=== PATIENT | female | born 1965 | race Two or more races ===

== ENCOUNTER 2024-03-02 09:54 | Outpatient (AMB) | payer BC, SELFPAY ==
--- NOTE | 2024-03-02 10:29 | PD.ORTHCLVIS ---
Vital signs 03/02/24 10:31 Height 1.68 m Height Method Stated Weight 71.327 kg Weight Measurement Method Standing Scale BMI 25.2 BP 107/71 Blood Pressure Source Automatic Cuff Blood Pressure Location Right Upper Arm Position Sitting Respiration 18 Pulse 71 Pulse Source Monitor Temp 97.6 F Temp Source Temporal Artery Scan Pulse Oximetry (%) 97 Oxygen Delivery Method Room Air Med/Allergies Allergies & Medications Allergies No Known Allergies Allergy (Verified 03/02/24 10:32) Medication Reconciliation paroxetine HCl 20 mg tablet 20 mg PO HS 12/18/20 [History Confirmed 03/02/24] nklnie-osnczhby-fbpaops 36,000-114,000-180,000 unit capsule,delay rel (Creon) 1 cap PO QDAY 11/20/21 [History Confirmed 03/02/24] potassium chloride 20 mEq tablet,extended release(part/cryst) 1 tab PO QDAY 11/20/21 [History Confirmed 03/02/24] lactulose 20 gram/30 mL oral solution 5 g (7.5 mL) PO BID #300 mL 12/05/21 [Rx Confirmed 03/02/24] lansoprazole 30 mg delayed release,disintegrating tablet (Prevacid SoluTab) 30 mg PO QDAY #30 tabs 12/05/21 [Rx Confirmed 03/02/24] lorazepam 0.5 mg tablet 0.5 mg PO HS PRN Anxiety #30 tabs 12/05/21 [Rx Confirmed 03/02/24] prednisone 20 mg tablet 40 mg (2 x 20 mg) PO QDAY #30 tabs 12/05/21 [Rx Confirmed 03/02/24] spironolactone 25 mg tablet 25 mg PO DAILY #30 tabs 12/05/21 [Rx Confirmed 03/02/24] thiamine mononitrate (vit B1) 100 mg tablet (Vitamin B-1 (mononitrate)) 100 mg PO BID #30 tabs 12/05/21 [Rx Confirmed 03/02/24] hydrocodone 5 mg-acetaminophen 325 mg tablet 1 tab PO BID PRN pain #10 tabs 02/10/23 [Rx Confirmed 03/02/24] ibuprofen 600 mg tablet 600 mg PO Q6H #30 tabs 02/10/23 [Rx Confirmed 03/02/24] hydrocodone 5 mg-acetaminophen 325 mg tablet 1 tab PO Q6H PRN pain #7 tabs 02/26/23 [Rx Confirmed 03/02/24] ibuprofen 600 mg tablet 600 mg PO TID PRN pain #30 tabs 02/26/23 [Rx Confirmed 03/02/24] meloxicam 7.5 mg tablet 7.5 mg PO QDAY #45 tabs 11/04/23 [Rx Confirmed 03/02/24] celecoxib 200 mg capsule (Celebrex) 200 mg PO BID #60 caps 11/25/23 [Rx Confirmed 03/02/24] Subjective Visit Visit for: follow up visit and x-rays Immunization / Flu Flu Vaccine in the Last 12 Months: No Flu Vaccine Exclusion Criteria: No Exclusion Criteria History of Present Illness Chief complaint: F/U KNEE XRAYS Kelly is a pleasant 57-year-old female with left knee pain. This been ongoing a while. She had a prior ACL and meniscus surgery over [address] Torres. The left knee pain is affecting quality life and happiness. She has had injections previously as well as physical therapy. It has been quite a while since the last injection. She has done very well with the last injection. She Reports it is still working and wants to hold off Pain Pain level (0-10): 8 Pain duration: ALL DAY Pain location: inside (medial), outside (lateral), anterior and posterior Pain quality: sharp Pain timing: increases with activity Associated signs & symptoms: numbness, weakness and stiffness Ambulatory data Ambulatory device: none Treatments Number of previous injections: 1 (6 YEARS AGO NO HELP OR RELIEF ) Improvement with previous injections: No Improvement with PT: No Improvement with NSAIDS: no Review of Systems Review of Systems: All systems negative unless otherwise noted in HPI. Exam Exam Patient is in no acute distress and is cooperative with the examination today. Breathing is nonlabored. In no respiratory distress. Bilateral extremities were evaluated and demonstrates sensation intact to light touch. Palpable pedal pulses are present. No significant edema is present. Bilateral hips were examined. The patient has no pain with log roll of the hips. Internal rotation to 30 degrees and external rotation to 30 degrees is painless. Negative FADIR. The left knee was examined. The left knee is in [varus] alignment. Range of motion from [0-115] degrees. Knee is stable to varus and valgus as well as AP translation with <5mm. Patient has a [negative] McMurrays. There is [no] pain with patellofemoral compression and [no] crepitus noted. The knee is [tender] to palpation [medially]. The right knee was also examined. The right knee is in [varus] alignment. Range of motion from [0-120] degrees. Knee is stable to varus and valgus as well as AP translation with <5mm. Patient has a [negative] McMurrays. There is [no] pain with patellofemoral compression and [no] crepitus noted. The knee is [tender] to palpation [medially]. Assessment and Plan Problem List (1) Degenerative arthritis of knee, bilateral: Status: Acute Plan: Patient is a 57-year-old female with bilateral knee arthritis worse on the left. X-rays demonstrate moderate arthritis of the left knee with prior hardware. Patient is doing well. She wants to wait to see how long the last injection works Office Procedures GNS Level of Care Nursing/Assessment Patient Status: Established Patient Nursing Assessment/Reassesment: Medication Reconciliation, Update PMH in EMR and Vital Signs Coordination of Care: Complex Care and Chronic Disease 1-5, Education Complex Pt/Fam, Consent,records obtained, informed consent, Results/Orders obtained and Staff clarify orders Special Needs: Language special needs Established Patient Charge Established Patient Point Assignment: 95 Established Patient Point Charge: EP Level 3 (80-115) Past Medical History Past Medical History Have you ever been diagnosed with any of the following: Neurological Problems Seizures: No Cardiology Problems Congestive Heart Failure: No Respiratory Problems Chronic Obstructive Pulmonary Disease (COPD): No Asthma: No Smoking: Yes (30 YEARS) Smoking Exposure: Yes Stomache/Intestinal Problems Cirrhosis: No Celiac Disease: No Gall Bladder Disease: Yes Daly's Esophagus: No Colitis: No Irritable Bowel: No Hiatal Hernia: Yes Gastroesophageal Reflux Disease: No Genital/Urinary Problems Renal Disease: No Endocrine Problems Diabetes Mellitus Type 1: No Diabetes Mellitus Type 2: No Hyperthyroidism: Yes Blood Problems Sickle Cell Disease: No Psychologic Problems Depression: Yes Anxiety: Yes Other Problems Falls: Yes Blood Transfusions: Yes Blood Transfusion Reaction: No Anesthesia Reactions: No Measles: Yes Mumps: Yes Cancer: No
[2024-03-02 10:31] VITALS: BP 107/71; PULSE 71; RESP 18; TEMP 36.4; O2SAT 97; BMI 25.2
== END 2024-03-02 10:33 | disposition home or self-care (01) ==
LOC: HODSRG 09:54
PROVIDERS: PCP Internal Medicine; Referring Provider Internal Medicine; Supervising Provider Orthopaedic Surgery Adult Reconstructive Orthopaedic Surgery; Visit Provider Orthopaedic Surgery Adult Reconstructive Orthopaedic Surgery
DX: M17.0 Bilateral primary osteoarthritis of knee (principal)
CPT/HCPCS: 99213; G0463

== ENCOUNTER → 2024-03-11 | Outpatient (CLI) | payer BC, SELFPAY ==
[2024-03-11 10:46] LABS: Basophils % (Auto) 0 % (0-2.5); Eosinophils # (Auto) 0.1 Thou/mm3 (0.0-0.5); Eosinophils % (Auto) 2 % (0-10); Hematocrit 39.5 % (36.0-46.0); Hemoglobin 13.9 g/dL (12.0-16.0); Immature Granulocytes % (Auto) 0 % (0-0); Immature Granulocytes Auto 0.02 Thou/mm3 (0.00-0.00); Lymphocytes # (Auto) 1.2 Thou/mm3 (1.0-4.8); Lymphocytes % (Auto) 22 % (10-50); Mean Corpuscular HGB Conc 35.2 g/dl (31.0-37.0); Mean Corpuscular Hemoglobin 31.6 pg (25.0-35.0); Mean Corpuscular Volume 90 fL (80-100); Monocytes # (Auto) 0.3 Thou/mm3 (0.0-0.8); Monocytes % (Auto) 5 % (0-12); Neutrophils # (Auto) 3.9 Thou/mm3 (1.8-7.7); Neutrophils % (Auto) 70 % (37-80); Nucleated Red Blood Cell % 0 /100 WBC (0); Platelet Count 200 Thou/mm3 (140-440); RDW Standard Deviation 39.6 fL (36.4-46.3); White Blood Count 5.6 Thou/mm3 (3.6-11.0)
[2024-03-11 10:58] LABS: Glucose Estimated Average 82 mg/dL (80-131); Hemoglobin A1C 4.5 % Hgb (4.8-6.0)
[2024-03-11 11:07] LABS: Alanine Aminotransferase 26 U/L (10-49); Albumin/Globulin Ratio 2.3 (1.2-2.2); Alkaline Phosphatase 109 U/L (46-116); Anion Gap 6 (7-16); Aspartate Amino Transferase 29 U/L (0-34); BUN/Creatinine Ratio 15 Ratio (12-20); Bilirubin,Total 0.6 mg/dL (0.3-1.2); Blood Urea Nitrogen 17 mg/dL (9-23); Carbon Dioxide 26.7 mMol/L (20.0-31.0); Cardiac Risk Estimate 2.7 RATIO (3.7-5.6); Chloride 107 mMol/L (98-107); Cholesterol 233 mg/dL (132-200); Creatinine (Component) 1.1 mg/dL (0.6-1.3); Globulin 2.2 gm/dL (2.3-3.5); Glucose 100 mg/dL (74-106); HDL Cholesterol 87 mg/dL (40-60); LDL Cholesterol,Calculated 126 mg/dL (0-130); Osmolality,Calculated 280 (275-295); Potassium 4.9 mMol/L (3.4-5.1); Sodium 140 mMol/L (136-145); Thyroid Stimulating Hormone 1.34 uIU/mL (0.55-4.78); Total Protein 7.2 gm/dL (5.7-8.2); Triglycerides 101 mg/dL (30-150); Uric Acid 6.7 mg/dL (3.1-7.8); eGFR 59 See Note
[2024-03-11 11:08] LABS: Vitamin B12 568 pg/mL (211-911); Vitamin D 25 Hydroxy Total 10.2 ng/mL (7.3-40.2)
== END | disposition home or self-care (01) ==
LOC: COPL 09:15
PROVIDERS: PCP Internal Medicine; Referring Provider Internal Medicine; Visit Provider Internal Medicine
DX: Z00.00 Encounter for general adult medical examination without abnormal findings (principal)
CPT/HCPCS: 36415; 80053; 80061; 81001; 82306; 82607; 83036; 84443; 84550; 85025

== ENCOUNTER 2024-03-12 11:03 | Outpatient (AMB) | payer BC, SELFPAY ==
[2024-03-12 11:20] VITALS: BP 150/76; PULSE 65; RESP 18; TEMP 36.6; O2SAT 97; BMI 25.2
--- NOTE | 2024-03-12 11:20 | ORTHONT_ITS ---
Vital signs 03/12/24 11:20 Height 1.68 m Height Method Stated Weight 71.214 kg Weight Measurement Method Standing Scale BMI 25.2 BP 150/76 H Blood Pressure Source Automatic Cuff Blood Pressure Location Right Upper Arm Position Sitting Respiration 18 Pulse 65 Pulse Source Monitor Temp 97.8 F Temp Source Oral Pulse Oximetry (%) 97 Oxygen Delivery Method Room Air Med/Allergies Allergies & Medications Allergies No Known Allergies Allergy (Verified 03/02/24 10:32) Subjective Visit Visit for: follow up visit and x-rays Immunization / Flu Flu Vaccine in the Last 12 Months: Yes Date of most recent flu vaccination: 05/08/23 Flu Vaccine Exclusion Criteria: No Exclusion Criteria History of Present Illness Chief complaint: RIGHT KNEE PAIN, REQUESTING INJETION Kelly is a pleasant 57-year-old female with left knee pain. This been ongoing a while. She had a prior ACL and meniscus surgery over [address] Torres. The left knee pain is affecting quality life and happiness. She has had injections previously as well as physical therapy. It has been quite a while since the last injection. She has done very well with the last injection. For the right knee, she reports an increase in pain. We had x-rays that demonstrate moderate arthritis. She has tried anti-inflammatories Personal History Occupation: RETIRED Red flag PMH: smoker Pain Pain level (0-10): 8 Pain duration: CONSTANT Pain location: inside (medial), outside (lateral) and anterior Pain quality: sharp, tingling and other (specify) (STABBING) Pain timing: increases with activity Associated signs & symptoms: numbness and stiffness Ambulatory data Ambulatory device: none Treatments Number of previous injections: 1 (6 YEARS AGO NO HELP OR RELIEF ) Improvement with previous injections: No Improvement with PT: No Improvement with NSAIDS: no Review of Systems Review of Systems: All systems negative unless otherwise noted in HPI. Exam Exam Patient is in no acute distress and is cooperative with the examination today. Breathing is nonlabored. In no respiratory distress. Bilateral extremities were evaluated and demonstrates sensation intact to light touch. Palpable pedal pulses are present. No significant edema is present. Bilateral hips were examined. The patient has no pain with log roll of the hips. Internal rotation to 30 degrees and external rotation to 30 degrees is painless. Negative FADIR. The left knee was examined. The left knee is in [varus] alignment. Range of motion from [0-115] degrees. Knee is stable to varus and valgus as well as AP translation with <5mm. Patient has a [negative] McMurrays. There is [no] pain with patellofemoral compression and [no] crepitus noted. The knee is [tender] to palpation [medially]. The right knee was also examined. The right knee is in [varus] alignment. Range of motion from [0-120] degrees. Knee is stable to varus and valgus as well as AP translation with <5mm. Patient has a [negative] McMurrays. There is [no] pain with patellofemoral compression and [no] crepitus noted. The knee is [tender] to palpation [medially]. Prior x-rays demonstrate moderate arthritis of the right knee with joint space narrowing medially and laterally Assessment and Plan Problem List (1) Degenerative arthritis of knee, bilateral: Status: Acute Plan: Patient is a 57-year-old female with bilateral knee arthritis worse on the left. We discussed injections on the right knee. We also recommended anti-in flammatories. Recommend knee cortisone injection as patient would like to proceed with conservative treatment at this time. The risks and benefits of the procedure were reviewed with the patient and patient gave verbal consent to continue with the procedure. Procedure: performed by Dr. Abernathy Using sterile technique the Right knee was thoroughly prepped with alcohol, and approximately 1 cc of Kenalog 40 mg/mL and 4 cc of 1% lidocaine was injected without resistance into the medial tibial femoral joint space. The patient tolerated the procedure. Office Procedures GNS Level of Care Nursing/Assessment Patient Status: Established Patient Nursing Assessment/Reassesment: Medication Reconciliation, Update PMH in EMR and Vital Signs Coordination of Care: Complex Care and Chronic Disease 1-5, Education Complex Pt/Fam, Consent,records obtained, informed consent, Results/Orders obtained and Staff clarify orders Established Patient Charge Established Patient Point Assignment: 95 Established Patient Point Charge: EP Level 1 (1-35) Surgical Proc/IM SQ injection Major Surgical Procedure: Yes (KNEE INJECTION ) Medication Given Medication Given Medication Given: Yes Documented Dose Given: 4 Medication Given Medication Given Medication Given: Yes Documented Dose Given: 1 Route: Infiitration Office Meds Xylocaine 10 mg/mL (1 %) injection solution Performing Provider: Praneeth Abernathy MD Performing Location: [facility] Administered by: Praneeth Abernathy MD on 03/12/24 11:48 Dose Route Admin Location Dispensed Lot Number Expiration Date [facility] Machine Leather Trimmer 20 mL Infiltration 20 mL [id number] [employer] triamcinolone acetonide 40 mg/mL suspension for injection Performing Provider: Praneeth Abernathy MD Performing Location: [facility] Administered by: Praneeth Abernathy MD on 03/12/24 11:48 Dose Route Admin Location Dispensed Lot Number Expiration Date [facility] Machine Leather Trimmer 40 mg intra-articular 1 mL [id number] [employer] Past Medical History Past Medical History Have you ever been diagnosed with any of the following: Neurological Problems Seizures: No Cardiology Problems Congestive Heart Failure: No Respiratory Problems Chronic Obstructive Pulmonary Disease (COPD): No Asthma: No Smoking: Yes (30 YEARS) Smoking Exposure: Yes Stomache/Intestinal Problems Cirrhosis: No Celiac Disease: No Gall Bladder Disease: Yes Daly's Esophagus: No Colitis: No Irritable Bowel: No Hiatal Hernia: Yes Gastroesophageal Reflux Disease: No Genital/Urinary Problems Renal Disease: No Endocrine Problems Diabetes Mellitus Type 1: No Diabetes Mellitus Type 2: No Hyperthyroidism: Yes Blood Problems Sickle Cell Disease: No Psychologic Problems Depression: Yes Anxiety: Yes Other Problems Falls: Yes Blood Transfusions: Yes Blood Transfusion Reaction: No Anesthesia Reactions: No Measles: Yes Mumps: Yes Cancer: No
== END 2024-03-12 11:39 | disposition home or self-care (01) ==
LOC: HODSRG 11:03
PROVIDERS: PCP Internal Medicine; Referring Provider Internal Medicine; Supervising Provider Orthopaedic Surgery Adult Reconstructive Orthopaedic Surgery; Visit Provider Orthopaedic Surgery Adult Reconstructive Orthopaedic Surgery
DX: M17.0 Bilateral primary osteoarthritis of knee (principal)
CPT/HCPCS: 20610; 99211; J3301; J3490; G0463

== ENCOUNTER → 2024-03-12 | Outpatient (CLI) | payer BC, SELFPAY ==
[2024-03-12 09:58] LABS: Collection Type, Urine Clean Catch; Squamous Epithelial Cell,Urine 0 /hpf (0-5)
[2024-03-12 10:32] LABS: Bilirubin,Urine Negative (Negative); Blood,Urine Trace (Negative); Clarity,Urine Clear (Clear/Hazy); Color,Urine Lt-Yellow (Lt Yel-Yel); Glucose, Urine Negative (Negative); Ketones,Urine Negative (Negative); Leukocyte Esterase,Urine Negative (Negative); Nitrite,Urine Negative (Negative); Protein,Urine Negative (Neg - Trace); RBC,Urine 3 /hpf (0-3); Specific Gravity,Urine 1.014 (1.001-1.035); Urobilinogen,Urine Negative mg/dL (0.0-1.0); WBC,Urine 1 /hpf (0-5)
== END | disposition home or self-care (01) ==
LOC: SLDO 09:45
PROVIDERS: PCP Internal Medicine; Referring Provider Internal Medicine; Visit Provider Internal Medicine
DX: Z00.00 Encounter for general adult medical examination without abnormal findings (principal)
CPT/HCPCS: 81001

== ENCOUNTER 2024-09-23 14:09 | Outpatient (AMB) | payer BC, SELFPAY ==
[2024-09-23 14:29] VITALS: BP 135/77; PULSE 64; RESP 18; TEMP 36.8; O2SAT 96; BMI 24.3
--- NOTE | 2024-09-23 14:29 | PD.ORTHCLVIS ---
Vital signs 09/23/24 14:29 Height 1.68 m Height Method Stated Weight 68.521 kg Weight Measurement Method Standing Scale BMI 24.3 BP 135/77 H Blood Pressure Source Automatic Cuff Blood Pressure Location Right Upper Arm Position Sitting Respiration 18 Pulse 64 Pulse Source Monitor Temp 98.2 F Temp Source Temporal Artery Scan Pulse Oximetry (%) 96 Oxygen Delivery Method Room Air Med/Allergies Allergies & Medications Allergies No Known Allergies Allergy (Verified 09/23/24 14:31) Medication Reconciliation paroxetine HCl 20 mg tablet 20 mg PO HS 12/18/20 [History Confirmed 09/23/24] qxhgwo-ikbdfgij-hbcrrbz 36,000-114,000-180,000 unit capsule,delay rel (Creon) 1 cap PO QDAY 11/20/21 [History Confirmed 09/23/24] potassium chloride 20 mEq tablet,extended release(part/cryst) 1 tab PO QDAY 11/20/21 [History Confirmed 09/23/24] lactulose 20 gram/30 mL oral solution 5 g (7.5 mL) PO BID #300 mL 12/05/21 [Rx Confirmed 09/23/24] lansoprazole 30 mg delayed release,disintegrating tablet (Prevacid SoluTab) 30 mg PO QDAY #30 tabs 12/05/21 [Rx Confirmed 09/23/24] lorazepam 0.5 mg tablet 0.5 mg PO HS PRN Anxiety #30 tabs 12/05/21 [Rx Confirmed 09/23/24] prednisone 20 mg tablet 40 mg (2 x 20 mg) PO QDAY #30 tabs 12/05/21 [Rx Confirmed 09/23/24] spironolactone 25 mg tablet 25 mg PO DAILY #30 tabs 12/05/21 [Rx Confirmed 09/23/24] thiamine mononitrate (vit B1) 100 mg tablet (Vitamin B-1 (mononitrate)) 100 mg PO BID #30 tabs 12/05/21 [Rx Confirmed 09/23/24] ibuprofen 600 mg tablet 600 mg PO Q6H #30 tabs 02/10/23 [Rx Confirmed 09/23/24] ibuprofen 600 mg tablet 600 mg PO TID PRN pain #30 tabs 02/26/23 [Rx Confirmed 09/23/24] meloxicam 7.5 mg tablet 7.5 mg PO QDAY #45 tabs 11/04/23 [Rx Confirmed 09/23/24] celecoxib 200 mg capsule (Celebrex) 200 mg PO BID #60 caps 11/25/23 [Rx Confirmed 09/23/24] hydrocodone 5 mg-acetaminophen 325 mg tablet 1 tab PO BID PRN pain #10 tabs 03/12/24 [Rx Confirmed 09/23/24] hydrocodone 5 mg-acetaminophen 325 mg tablet 1 tab PO Q6H PRN pain #7 tabs 09/23/24 [Rx] Exam Exam Patient is in no acute distress and is cooperative with the examination today. Breathing is nonlabored. In no respiratory distress. Bilateral extremities were evaluated and demonstrates sensation intact to light touch. Palpable pedal pulses are present. No significant edema is present. Bilateral hips were examined. The patient has no pain with log roll of the hips. Internal rotation to 30 degrees and external rotation to 30 degrees is painless. Negative FADIR. The left knee was examined. The left knee is in [varus] alignment. Range of motion from [0-115] degrees. Knee is stable to varus and valgus as well as AP translation with <5mm. Patient has a [negative] McMurrays. There is [no] pain with patellofemoral compression and [no] crepitus noted. The knee is [tender] to palpation [medially]. The right knee was also examined. The right knee is in [varus] alignment. Range of motion from [0-120] degrees. Knee is stable to varus and valgus as well as AP translation with <5mm. Patient has a [negative] McMurrays. There is [no] pain with patellofemoral compression and [no] crepitus noted. The knee is [tender] to palpation [medially]. Prior x-rays demonstrate moderate arthritis of the right knee with joint space narrowing medially and laterally Assessment and Plan Problem List (1) Degenerative arthritis of knee, bilateral: Status: Acute Plan: Patient is a 57-year-old female with bilateral knee arthritis worse on the left. We discussed injections on the right knee. We also recommended anti-inflammatories. Recommend knee cortisone injections as patient would like to proceed with conservative treatment at this time. The risks and benefits of the procedure were reviewed with the patient and patient gave verbal consent to continue with the procedure. Procedure: performed by Dr. Abernathy Using sterile technique the Bilateral knees were thoroughly prepped with alcohol, and approximately 1 cc of Kenalog 40 mg/mL and 4 cc of 1% lidocaine was injected into each knee without resistance into the medial tibial femoral joint space. The patient tolerated the procedure. Office Procedures GNS Level of Care Nursing/Assessment Patient Status: Established Patient Nursing Assessment/Reassesment: Medication Reconciliation, Update PMH in EMR and Vital Signs Coordination of Care: Complex Care and Chronic Disease 1-5, Education Complex Pt/Fam, Consent,records obtained, informed consent, Results/Orders obtained and Staff clarify orders Established Patient Charge Established Patient Point Assignment: 95 Established Patient Point Charge: EP Level 3 (80-115) Surgical Proc/IM SQ injection Major Surgical Procedure: Yes (KNEE INJECTION) Medication Given Medication Given Medication Given: Yes Documented Dose Given: 8 Route: Infiitration Medication Given Medication Given Medication Given: Yes Documented Dose Given: 2 Route: Infiitration Office Meds Xylocaine 10 mg/mL (1 %) injection solution Performing Provider: Praneeth Abernathy MD Performing Location: [facility] Administered by: Praneeth Abernathy MD on 09/23/24 14:53 Dose Route Admin Location Dispensed Lot Number Expiration Date [facility] Autom[employer] Carp[employer] Molder 20 mL Infiltration 20 mL [id number] 08/05/27 52480-819-[address] [facility] triamcinolone acetonide 40 mg/mL suspension for injection Performing Provider: Praneeth Abernathy MD Performing Location: [facility] Administered by: Praneeth Abernathy MD on 09/23/24 14:53 Dose Route Admin Location Dispensed Lot Number Expiration Date [facility] [employer] Molder 40 mg intra-articular KNEE 1 mL [id number] 11/03/25 99083-415-74 ROZ REAL MA Intake Visit Data Collection New Patient or Established: Established Patient (seen at [facility] within 3 years) Reason for Visit:: BILATERAL KNEE INJECTION Seen by Clinical Staff ONLY (RN/MA): No Verbal consent obtained for Telemed visit?: No Farm Products Shipper Required: No PCP or OBGYN visit in last 3 months: Yes Hx Now: No Do You Feel Safe at Home: Yes Authorities Contacted: N/A Questionairres Past Medical History Past Medical History Have you ever been diagnosed with any of the following: Neurological Problems Seizures: No Cardiology Problems Congestive Heart Failure: No Respiratory Problems Chronic Obstructive Pulmonary Disease (COPD): No Asthma: No Smoking: Yes (30 YEARS) Smoking Exposure: Yes Stomache/Intestinal Problems Cirrhosis: No Celiac Disease: No Gall Bladder Disease: Yes Daly's Esophagus: No Colitis: No Irritable Bowel: No Hiatal Hernia: Yes Gastroesophageal Reflux Disease: No Genital/Urinary Problems Renal Disease: No Endocrine Problems Diabetes Mellitus Type 1: No Diabetes Mellitus Type 2: No Hyperthyroidism: Yes Blood Problems Sickle Cell Disease: No Psychologic Problems Depression: Yes Anxiety: Yes Other Problems Falls: Yes Blood Transfusions: Yes Blood Transfusion Reaction: No Anesthesia Reactions: No Measles: Yes Mumps: Yes Cancer: No Subjective Visit Visit for: follow up visit Immunization / Flu Flu Vaccine in the Last 12 Months: No Flu Vaccine Exclusion Criteria: No Exclusion Criteria History of Present Illness Chief complaint: BILATERAL KNEE INJECTIONS Patient is a 58-year-old female with bilateral knee pain. She is done well with prior cortisone injections in the past. She would like bilateral knee injections today Personal History Red flag PMH: BMI and other (specify) (FORMER ALCHOLIC ) BMI Counceling provided: Yes Pain Pain level (0-10): 6 Pain duration: ALL DAY Pain location: inside (medial), outside (lateral), anterior and posterior Pain quality: sharp, dull and aching Pain timing: increases with activity Ambulatory data Ambulatory device: none Treatments Improvement with previous injections: Yes Improvement with PT: No Improvement with NSAIDS: no Review of Systems Review of Systems: All systems negative unless otherwise noted in HPI.
== END 2024-09-23 14:48 | disposition home or self-care (01) ==
LOC: HODSRG 14:09
PROVIDERS: PCP Internal Medicine; Referring Provider Internal Medicine; Supervising Provider Orthopaedic Surgery Adult Reconstructive Orthopaedic Surgery; Visit Provider Orthopaedic Surgery Adult Reconstructive Orthopaedic Surgery
DX: M17.0 Bilateral primary osteoarthritis of knee (principal); M25.562 Pain in left knee; M25.561 Pain in right knee
CPT/HCPCS: 20610; 99213; J3301; J3490; G0463

== ENCOUNTER → 2024-11-02 | Outpatient (CLI) | payer BC, SELFPAY ==
[2024-11-02 11:40] LABS: Basophils # (Auto) 0.0 Thou/mm3 (0.0-0.2); Basophils % (Auto) 0 % (0-2.5); Eosinophils # (Auto) 0.0 Thou/mm3 (0.0-0.5); Eosinophils % (Auto) 0 % (0-10); Hematocrit 39.3 % (36.0-46.0); Hemoglobin 14.2 g/dL (12.0-16.0); Immature Granulocytes Auto 0.01 Thou/mm3 (0.00-0.00); Lymphocytes # (Auto) 1.2 Thou/mm3 (1.0-4.8); Lymphocytes % (Auto) 25 % (10-50); Mean Corpuscular HGB Conc 36.1 g/dl (31.0-37.0); Mean Corpuscular Hemoglobin 32.6 pg (25.0-35.0); Mean Corpuscular Volume 90 fL (80-100); Monocytes # (Auto) 0.3 Thou/mm3 (0.0-0.8); Monocytes % (Auto) 7 % (0-12); Neutrophils # (Auto) 3.2 Thou/mm3 (1.8-7.7); Neutrophils % (Auto) 68 % (37-80); Nucleated Red Blood Cell # 0.00 Thou/mm3 (0.00-0.00); Nucleated Red Blood Cell % 0 /100 WBC (0); Platelet Count 241 Thou/mm3 (140-440); RDW Standard Deviation 43.5 fL (36.4-46.3); Red Blood Count 4.36 Miln/mm3 (4.00-5.20); White Blood Count 4.7 Thou/mm3 (3.6-11.0)
[2024-11-02 11:57] LABS: Collection Type, Urine Clean Catch; Squamous Epithelial Cell,Urine 0 /hpf (0-5)
[2024-11-02 12:00] LABS: Alanine Aminotransferase 15 U/L (10-49); Albumin, Serum 4.6 gm/dL (3.5-5.0); Albumin/Globulin Ratio 2.0 (1.2-2.2); Alkaline Phosphatase 80 U/L (46-116); Anion Gap 7 (7-16); Aspartate Amino Transferase 22 U/L (0-34); BUN/Creatinine Ratio 9 Ratio (12-20); Bilirubin,Direct 0.2 mg/dL (0.0-0.3); Bilirubin,Total 0.7 mg/dL (0.3-1.2); Blood Urea Nitrogen 10 mg/dL (9-23); Calcium 9.6 mg/dL (8.3-10.6); Calcium (Corrected) 9.6 mg/dL (8.5-10.1); Carbon Dioxide 27.5 mMol/L (20.0-31.0); Cardiac Risk Estimate 3.1 RATIO (3.7-5.6); Chloride 106 mMol/L (98-107); Cholesterol 236 mg/dL (132-200); Creatinine (Component) 1.1 mg/dL (0.6-1.3); Globulin 2.3 gm/dL (2.3-3.5); Glucose 99 mg/dL (74-106); HDL Cholesterol 75 mg/dL (40-60); LDL Cholesterol,Calculated 145 mg/dL (0-130); Osmolality,Calculated 278 (275-295); Potassium 5.1 mMol/L (3.4-5.1); Sodium 140 mMol/L (136-145); Thyroid Stimulating Hormone 0.94 uIU/mL (0.55-4.78); Total Protein 6.9 gm/dL (5.7-8.2); Triglycerides 82 mg/dL (30-150); Uric Acid 5.5 mg/dL (3.1-7.8); Vitamin B12 409 pg/mL (211-911); Vitamin D 25 Hydroxy Total 18.3 ng/mL (7.3-40.2); eGFR 59 See Note
[2024-11-02 12:31] LABS: Bilirubin,Urine Negative (Negative); Blood,Urine Negative (Negative); Clarity,Urine Clear (Clear/Hazy); Color,Urine Lt-Yellow (Lt Yel-Yel); Glucose, Urine Negative (Negative); Ketones,Urine Negative (Negative); Leukocyte Esterase,Urine Negative (Negative); Nitrite,Urine Negative (Negative); PH,Urine 6.5 (5.0-7.0); Protein,Urine Negative (Neg - Trace); RBC,Urine 1 /hpf (0-3); Specific Gravity,Urine 1.012 (1.001-1.035); Urobilinogen,Urine Negative mg/dL (0.0-1.0); WBC,Urine 1 /hpf (0-5)
== END | disposition home or self-care (01) ==
LOC: COPL 10:47
PROVIDERS: PCP Internal Medicine; Referring Provider Internal Medicine; Visit Provider Internal Medicine
DX: Z00.00 Encounter for general adult medical examination without abnormal findings (principal)
CPT/HCPCS: 36415; 80053; 80061; 81001; 82248; 82306; 82607; 84443; 84550; 85025

== ENCOUNTER 2024-11-29 09:57 | Emergency (ER) | payer BC, SELFPAY ==
[2024-11-29 10:04] VITALS: BP 147/67; PULSE 70; RESP 24; O2SAT 99
--- NOTE | 2024-11-29 10:12 | EKG_ITS ---
[facility] Test Date: 2024-11-29 Pat Name: CLIFF FAJARDO Department: Room: - Gender: Female Systems Librarian: : 1965 Requested By: Sakina Golden Order Number: [id number] Reading MD: Sakina Golden Measurements Intervals [place] Rate: 58 P: 64 SD: 164 QRS: 63 QRSD: 90 T: 66 QT: 416 QTc: 412 Interpretive Statements SINUS BRADYCARDIA WITH SINUS ARRHYTHMIA NONSPECIFIC T-WAVE ABNORMALITY Compared to ECG 12/03/2022 12:33:29 T-wave abnormality now present Sinus rhythm no longer present Left ventricular hypertrophy no longer present ST (T wave) deviation no longer present /store/S0/[id number]/[id number].pdf
[2024-11-29 10:13] VITALS: BMI 22.6
[2024-11-29] MEDS: ONDANSETRON INJ 2 MG/ML INJ 2 ML 4 MG IVP (10:24)
[2024-11-29] MEDS: fentaNYL CIT INJ 50 mCg/ML AMP 2ML 25 MCG IVP (10:25)
[2024-11-29 10:37] LABS: Basophils # (Auto) 0.0 Thou/mm3 (0.0-0.2); Basophils % (Auto) 0 % (0-2.5); Eosinophils # (Auto) 0.0 Thou/mm3 (0.0-0.5); Eosinophils % (Auto) 0 % (0-10); Hematocrit 42.7 % (36.0-46.0); Hemoglobin 15.6 g/dL (12.0-16.0); Immature Granulocytes Auto 0.04 Thou/mm3 (0.00-0.00); Lymphocytes # (Auto) 2.9 Thou/mm3 (1.0-4.8); Lymphocytes % (Auto) 31 % (10-50); Mean Corpuscular HGB Conc 36.5 g/dl (31.0-37.0); Mean Corpuscular Hemoglobin 32.8 pg (25.0-35.0); Mean Corpuscular Volume 90 fL (80-100); Monocytes # (Auto) 0.6 Thou/mm3 (0.0-0.8); Monocytes % (Auto) 7 % (0-12); Neutrophils # (Auto) 5.6 Thou/mm3 (1.8-7.7); Neutrophils % (Auto) 61 % (37-80); Nucleated Red Blood Cell # 0.00 Thou/mm3 (0.00-0.00); Nucleated Red Blood Cell % 0 /100 WBC (0); Platelet Count 292 Thou/mm3 (140-440); RDW Standard Deviation 43.4 fL (36.4-46.3); Red Blood Count 4.75 Miln/mm3 (4.00-5.20); White Blood Count 9.2 Thou/mm3 (3.6-11.0)
--- NOTE | 2024-11-29 10:44 | PC.NURSE ---
PATIENT CAME IN TO ED FOR NAUSEA VOMITING AND DIARRHEA THAT STARTED YESTERDAY. PATIENT HAS HISTORY OF CIRRHOSIS, ANXIETY AND HIGH BLOOD PRESSURE. PATIENT IS ALERT AND ORIENTED X4. PATIENT CAME IN SCREAMING AT STAFF STATING SHE IS DYING. PATIENT YELLING AT STAFF TO PLEASE HELP HER. PATIENT WAS TAKEN TO ROOM 19. VITAL SIGNS ALL STABLE. PATIENT GIVEN IV ZOFRAN FOR NAUSEA AND FENTANLY FOR PAIN IC PER DR PEREZ. PATIENT CONTINUED TO SCREAM AT STAFF, PATIENT TRIED TO GET UP FROM BED ON HER OWN. PATIENT WAS TOLD TO STAY IN BED AND WAIT FOR WHEELCHAIR. PATIENT WAS ALSO OFFERED A BED CAMACHO. PATIENT WANTED TO LEAVE AMA.
--- NOTE | 2024-11-29 10:48 | PD.EDNV ---
Nausea/Vomit./Diarrhea-RME/HPI General Chief complaint: Shortness of Breath/Dyspnea Stated complaint: SOB, VOMITING, MUSC CRAMPS Time Seen by Provider: 11/29/24 10:02 Arrival date/time: 11/29/24 09:57 Limitations: no limitations RME / HPI RME / HPI Narrative: 59 year old female with history of anxiety, depression, previous liver failure that improved per patient, presents to the ED brought in by for evaluation of nausea, vomiting, and diarrhea beginning yesterday. Accompanied by waves of abdominal cramping-type pain, feeling anxious, feeling globally weak, and short of breath. Patient mentioned her symptoms began hours after eating at a restaurant. No sick contacts with similar GI symptoms. Denies fevers, chills, chest pain, cough, or urinary symptoms. Related Data Home Medications ?Medication ?Instructions ?Recorded ?Confirmed paroxetine HCl 20 mg tablet 20 mg PO HS 12/18/20 09/23/24 [id number] 1 cap PO QDAY 11/20/21 09/23/24 36,000-114,000-180,000 unit capsule,delay rel (Creon) potassium chloride 20 mEq 1 tab PO QDAY 11/20/21 09/23/24 tablet,extended release(part/cryst) Previous Rx's ?Medication ?Instructions ?Recorded lactulose 20 gram/30 mL oral 5 g (7.5 mL) PO BID #300 mL 12/05/21 solution lansoprazole 30 mg delayed 30 mg PO QDAY #30 tabs 12/05/21 release,disintegrating tablet (Prevacid SoluTab) lorazepam 0.5 mg tablet 0.5 mg PO HS PRN Anxiety #30 tabs 12/05/21 prednisone 20 mg tablet 40 mg (2 x 20 mg) PO QDAY #30 tabs 12/05/21 spironolactone 25 mg tablet 25 mg PO DAILY #30 tabs 12/05/21 thiamine mononitrate (vit B1) 100 100 mg PO BID #30 tabs 12/05/21 mg tablet (Vitamin B-1 (mononitrate)) ibuprofen 600 mg tablet 600 mg PO Q6H #30 tabs 02/10/23 ibuprofen 600 mg tablet 600 mg PO TID PRN pain #30 tabs 02/26/23 meloxicam 7.5 mg tablet 7.5 mg PO QDAY #45 tabs 11/04/23 celecoxib 200 mg capsule (Celebrex) 200 mg PO BID #60 caps 11/25/23 hydrocodone 5 mg-acetaminophen 325 1 tab PO BID PRN pain #10 tabs 03/12/24 mg tablet hydrocodone 5 mg-acetaminophen 325 1 tab PO Q6H PRN pain #7 tabs 09/23/24 mg tablet Allergies Allergy/AdvReac Type Severity Reaction Status Date / Time No Known Allergies Allergy Verified 11/29/24 09:58 Review of Systems Review of Systems Systems Reviewed: All systems reviewed, normal except as documented Past Medical History Past Medical History RESPIRATORY: Positive Smoking (30 YEARS) and Smoking Exposure GASTROINTESTINAL: Positive Gastrointestinal Disorders, Gall Bladder Disease and Hiatal Hernia ENDOCRINE: Positive Endocrine Disorders and Hyperthyroidism PSYCHO/SOCIAL: Positive Depression and Anxiety OTHER HISTORY: Positive Falls, Blood Transfusions, Measles and Mumps Family History FAMILY HISTORY: Positive Family Cardiac Disorders and Family Cancer Surgical History SURGICAL: Positive Abdominal Surgery and Section Social History SMOKING STATUS: Current every day smoker SECOND HAND EXPOSURE: No (pt smokes 3-6 cig/day since 2011) ED Exam General Limitations: Present no limitations General appearance: Present alert and anxious Head Head exam: Present atraumatic Eye Eye exam: Present normal appearance, PERRL and EOMI ENT ENT exam: Present normal exam, normal oropharynx and mucous membranes moist Neck Neck exam: Present normal inspection, full ROM and trachea midline Chest Chest inspection: Present normal inspection and symmetric chest wall rise Respiratory Respiratory exam: Present normal lung sounds bilaterally Cardiovascular Cardiovascular exam: Present regular rate, normal rhythm and normal heart sounds Abdominal Exam Abdominal exam: Present soft and normal bowel sounds Extremities Exam Extremities exam: Present normal inspection and full ROM Back Exam Back exam: Present normal inspection and full ROM Neurological Exam Neurological exam: Present alert, oriented X3 and CN II-XII intact Psychiatric Psychiatric exam: Present anxious Skin Skin exam: Present warm, dry, intact and normal color Course Quality Measures none Orders Category Date Time Status Bedside COVID-19 Antigen Test NOW Care 11/29/24 10:06 Active Bedside Influenza A&B Antigen Test NOW Care 11/29/24 10:[address] Screening NOW Care 11/29/24 10:16 Active EKG (ED ONLY) *Do not use* NOW Care 11/29/24 10:[address] abdomen pelvis w con Stat Exams 11/29/24 10:16 Ordered EKG (ED Only) Stat Exams 11/29/24 10:12 Ordered EKG (ED Only) Urgent Exams 11/29/24 10:12 Draft CBC Stat Lab 11/29/24 10:11 Completed CMP [Comprehensive Metabolic Panel] Stat Lab 11/29/24 10:16 Completed Lipase Stat Lab 11/29/24 10:16 Completed Troponin I Stat Lab 11/29/24 10:16 Completed LORazepam [Ativan] Med 11/29/24 10:34 Discontinued 0.5 mg PO X1 ONE Midazolam Inj [Versed Inj] Med 11/29/24 10:42 Discontinued 0.5 mg IVP X1 ONE Ondansetron Inj [Zofran Inj] Med 11/29/24 10:16 Discontinued 4 mg IVP X1 ONE Ondansetron Odt [Zofran Odt] Med 11/29/24 10:06 Discontinued 4 mg PO X1 ONE fentaNYL INJ [Sublimaze Inj] Med 11/29/24 10:18 Discontinued 25 mcg IVP X1 ONE Vital Signs Vital signs: Vital Signs Pulse Rate 70 11/29/24 10:04 Respiratory Rate 24 H 11/29/24 10:04 Blood Pressure 147/67 H 11/29/24 10:04 Pulse Oximetry (%) 99 11/29/24 10:04 Oxygen Delivery Method Room Air 11/29/24 10:04 Pulse ox is 99% on room air which is adequate. Nausea/Vomiting/Diarrhea MDM Narrative MDM Narrative:: Patient is a 59-year-old Patient data External records reviewed:: [facility] previous records Clinical information provided by:: patient and spouse Social determinants that could affect healthcare access:: mental health Patient has the following chronic illnesses:: anxiety, depression, previous liver failure How is presenting disease/condition affected by chronic disease/condition?: exacerbated by Evaluation data The following diagnostics were reviewed and interpreted by me:: EKG tracing(s) Lab and/or radiology exams considered but not ordered:: None Interpretation Summary: [facility] Medications / Prescriptions Medications / Prescriptions considered but not ordered:: None Medication administrations:: Medication Administration History Discontinued Medications Fentanyl Citrate (Fentanyl Cit Inj 50 Mcg/Ml Amp 2ml) 25 mcg IVP X1 ONE Stop: 11/29/24 10:19 Last Admin: 11/29/24 10:25 Dose: 25 mcg Documented By: VL Lorazepam (Lorazepam 0.5 Mg Tablet) 0.5 mg PO X1 ONE Stop: 11/29/24 10:35 Last Admin: 11/29/24 10:44 Dose: Not Given Documented By: JOHN Non-Admin Reason: Cancelled by Provider Midazolam HCl (Midazolam Inj 1 Mg/Ml Vial 2 Ml) 0.5 mg IVP X1 ONE Stop: 11/29/24 10:43 Last Admin: 11/29/24 10:52 Dose: 0.5 mg Documented By: JOHN Ondansetron HCl (Ondansetron Odt 4 Mg Tabrap) 4 mg PO X1 ONE; Protocol Stop: 11/29/24 10:07 Last Admin: 11/29/24 10:21 Dose: Not Given Documented By: JOHN Non-Admin Reason: Discontinued Ondansetron HCl (Ondansetron Inj 2 Mg/Ml Inj 2 Ml) 4 mg IVP X1 ONE; Protocol Stop: 11/29/24 10:17 Last Admin: 11/29/24 10:24 Dose: 4 mg Documented By: JOHN See above Consultations Consultation(s) initiated? (list below): No Diagnosis Nausea Differential Diagnosis: food poisoning, gastroenteritis, drug-induced nausea and vomiting and dehydration Most likely diagnosis given after review of the tests above:: Abdominal pain Admission Indicated Admission indicated?: not indicated Explain why admission is indicated or not indicated:: patient left AMA Admission Request Was there a request for admission?: No Disposition Plan Disposition Plan: other (specify) (Patient left AMA ) Discharge Plan Plan Patient Disposition: Elopement Prescriptions/Referrals Prescriptions/Med Rec: No Action celecoxib [Celebrex] 200 mg capsule 200 mg PO BID Qty: 60 2RF hydrocodone-acetaminophen 5-325 mg tablet 1 tab PO Q6H MDD 3 PRN (Reason: pain) Qty: 7 0RF meloxicam 7.5 mg tablet 7.5 mg PO QDAY Qty: 45 3RF lidocaine HCl [Xylocaine] 10 mg/mL (1 %) solution 20 ml Infiltration X1 Qty: 20 0RF triamcinolone acetonide 40 mg/mL suspension 40 mg intra-articular X1 Qty: 1 0RF hydrocodone-acetaminophen 5-325 mg tablet 1 tab PO BID MDD 10 PRN (Reason: pain) Qty: 10 0RF paroxetine HCl 20 mg tablet 20 mg PO HS Patient Comments: TAKE ONE TABLET BY MOUTH EVERY EVENING AT BED TIME potassium chloride 20 mEq tablet,ER particles/crystals 1 tab PO QDAY Patient Comments: TAKE ONE TABLET BY MOUTH EVERY DAY Creon 36,000-114,000- 180,000 unit Capsule,Delayed Release(Dr/Ec) 1 cap PO QDAY prednisone 20 mg Tablet 40 mg PO QDAY Qty: 30 0RF lorazepam 0.5 mg Tablet 0.5 mg PO HS PRN (Reason: Anxiety) Qty: 30 0RF lansoprazole [Prevacid SoluTab] 30 mg Tablet,Disintegrat, Delay Rel 30 mg PO QDAY Qty: 30 0RF lactulose 20 gram/30 mL Solution 5 g PO BID Qty: 300 0RF spironolactone 25 mg Tablet 25 mg PO DAILY Qty: 30 0RF thiamine mononitrate (vit B1) [Vitamin B-1 (mononitrate)] 100 mg Tablet 100 mg PO BID Qty: 30 0RF ibuprofen 600 mg tablet 600 mg PO Q6H Qty: 30 0RF ibuprofen 600 mg tablet 600 mg PO TID PRN (Reason: pain) Qty: 30 0RF Referrals: No Primary/Family,Physician [Primary Care Provider] - In 1 week Problem List Clinical Impression: Abdominal pain, Acute gross stress reaction Patient/Caregiver Discharge Instructions Print Language: Ecuadorean
[2024-11-29] MEDS: MIDAZOLAM INJ 1 MG/ML VIAL 2 ML 0.5 MG IVP (10:52)
--- NOTE | 2024-11-29 10:57 | PC.NURSE ---
PATIENT DECIDED TO STAY AFTER SPEAKING WITH DR PEREZ AND REQUESTED ANXIETY MEDICATION. DR PEREZ ORDERED IV VERSED. PATIENT AND AT BEDSIDE BOTH REQUESTING FOR PATIENT TO HAVE PSYCH EVALUATION DONE. 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 DR PEREZ MADE AWARE.
[2024-11-29 10:59] LABS: Alanine Aminotransferase 14 U/L (10-49); Albumin, Serum 4.7 gm/dL (3.5-5.0); Albumin/Globulin Ratio 2.0 (1.2-2.2); Alkaline Phosphatase 82 U/L (46-116); Anion Gap 19 (7-16); Aspartate Amino Transferase 25 U/L (0-34); BUN/Creatinine Ratio 9 Ratio (12-20); Bilirubin,Total 0.9 mg/dL (0.3-1.2); Blood Urea Nitrogen 10 mg/dL (9-23); Calcium 10.8 mg/dL (8.3-10.6); Calcium (Corrected) 10.8 mg/dL (8.5-10.1); Carbon Dioxide 17.3 mMol/L (20.0-31.0); Chloride 107 mMol/L (98-107); Creatinine (Component) 1.1 mg/dL (0.6-1.3); Estimated Creatinine Clearance 52.8 mL/min (>60); Globulin 2.4 gm/dL (2.3-3.5); Glucose 118 mg/dL (74-106); Lipase 24 U/L (12-53); Osmolality,Calculated 284 (275-295); Potassium 3.6 mMol/L (3.4-5.1); Sodium 143 mMol/L (136-145); Total Protein 7.1 gm/dL (5.7-8.2); Troponin I < 0.002 ng/mL (0.0-0.045); eGFR 59 See Note
[2024-11-29 11:14] VITALS: BP 174/66; PULSE 55; RESP 19; TEMP 36.5; O2SAT 100
--- NOTE | 2024-11-29 11:27 | PC.NURSE ---
Patient did not want to wait, stated I feel better and I am just walking out. RN encouraged patient to stay and finish work up, patient declined. Patient refused to sign AMA. IV removed and patient exited ED.
== END 2024-11-29 11:30 | disposition left against medical advice (07) ==
PROVIDERS: Emergency Provider Emergency Medicine
DX: R10.9 Unspecified abdominal pain (principal); F43.0 Acute stress reaction; Z53.29 Procedure and treatment not carried out because of patient's decision for other reasons
CPT/HCPCS: 36415; 80053; 80307; 81001; 83690; 84484; 85025; 87400; 87811; 93005; 96374; 96375; 99284; J2250; J2405; J3010

== ENCOUNTER → 2024-11-30 | Outpatient (CLI) | payer BC, SELFPAY ==
[2024-11-30 12:38] LABS: Collection Type, Urine Clean Catch
[2024-11-30 13:27] LABS: Albumin, Serum 5.0 gm/dL (3.5-5.0); Anion Gap 17 (7-16); BUN/Creatinine Ratio 11 Ratio (12-20); Blood Urea Nitrogen 13 mg/dL (9-23); Calcium 10.8 mg/dL (8.3-10.6); Calcium (Corrected) 10.8 mg/dL (8.5-10.1); Carbon Dioxide 19.7 mMol/L (20.0-31.0); Chloride 107 mMol/L (98-107); Creatinine (Component) 1.2 mg/dL (0.6-1.3); Glucose 140 mg/dL (74-106); Osmolality,Calculated 288 (275-295); Phosphorous 2.9 mg/dL (2.4-5.1); Potassium 3.8 mMol/L (3.4-5.1); Sodium 144 mMol/L (136-145); eGFR 53 See Note
[2024-11-30 13:43] LABS: Bilirubin,Urine 1+ (Negative); Blood,Urine 2+ (Negative); Clarity,Urine Clear (Clear/Hazy); Color,Urine Yellow (Lt Yel-Yel); Glucose, Urine Negative (Negative); Hyaline Casts,Urine 1 /hpf (0-1); Ketones,Urine 4+ (Negative); Leukocyte Esterase,Urine Negative (Negative); Nitrite,Urine Negative (Negative); PH,Urine 6.5 (5.0-7.0); Protein,Urine 2+ (Neg - Trace); RBC,Urine 19 /hpf (0-3); Specific Gravity,Urine 1.033 (1.001-1.035); Squamous Epithelial Cell,Urine 1 /hpf (0-5); Urobilinogen,Urine 3.0 mg/dL (0.0-1.0); WBC,Urine 3 /hpf (0-5)
== END | disposition home or self-care (01) ==
LOC: COPL 12:12
PROVIDERS: PCP Internal Medicine; Referring Provider Internal Medicine; Visit Provider Internal Medicine
DX: I10 Essential (primary) hypertension (principal); N39.0 Urinary tract infection, site not specified
CPT/HCPCS: 36415; 80069; 81001

== ENCOUNTER → 2024-12-08 | Outpatient (CLI) | payer BC, SELFPAY ==
[2024-12-08 17:11] LABS: Collection Type, Urine Clean Catch; Squamous Epithelial Cell,Urine 0 /hpf (0-5)
[2024-12-08 17:36] LABS: Basophils # (Auto) 0.0 Thou/mm3 (0.0-0.2); Basophils % (Auto) 0 % (0-2.5); Eosinophils # (Auto) 0.0 Thou/mm3 (0.0-0.5); Eosinophils % (Auto) 0 % (0-10); Hematocrit 37.0 % (36.0-46.0); Hemoglobin 13.3 g/dL (12.0-16.0); Immature Granulocytes Auto 0.05 Thou/mm3 (0.00-0.00); Lymphocytes # (Auto) 1.8 Thou/mm3 (1.0-4.8); Lymphocytes % (Auto) 24 % (10-50); Mean Corpuscular HGB Conc 35.9 g/dl (31.0-37.0); Mean Corpuscular Hemoglobin 32.9 pg (25.0-35.0); Mean Corpuscular Volume 92 fL (80-100); Monocytes # (Auto) 0.6 Thou/mm3 (0.0-0.8); Monocytes % (Auto) 8 % (0-12); Neutrophils # (Auto) 5.0 Thou/mm3 (1.8-7.7); Neutrophils % (Auto) 66 % (37-80); Nucleated Red Blood Cell # 0.00 Thou/mm3 (0.00-0.00); Nucleated Red Blood Cell % 0 /100 WBC (0); Platelet Count 215 Thou/mm3 (140-440); RDW Standard Deviation 42.0 fL (36.4-46.3); Red Blood Count 4.04 Miln/mm3 (4.00-5.20); White Blood Count 7.5 Thou/mm3 (3.6-11.0)
[2024-12-08 17:49] LABS: Bacteria,Urine Rare; Bilirubin,Urine Negative (Negative); Blood,Urine Negative (Negative); Clarity,Urine Clear (Clear/Hazy); Color,Urine Colorless (Lt Yel-Yel); Glucose, Urine Negative (Negative); Ketones,Urine Negative (Negative); Leukocyte Esterase,Urine Negative (Negative); Nitrite,Urine Negative (Negative); PH,Urine 6.5 (5.0-7.0); Protein,Urine Negative (Neg - Trace); RBC,Urine 1 /hpf (0-3); Specific Gravity,Urine 1.004 (1.001-1.035); Urobilinogen,Urine Negative mg/dL (0.0-1.0); WBC,Urine 1 /hpf (0-5)
[2024-12-08 17:49] LABS: Albumin, Serum 4.2 gm/dL (3.5-5.0); Anion Gap 9 (7-16); BUN/Creatinine Ratio 8 Ratio (12-20); Blood Urea Nitrogen 8 mg/dL (9-23); Calcium 9.7 mg/dL (8.3-10.6); Calcium (Corrected) 9.7 mg/dL (8.5-10.1); Carbon Dioxide 29.5 mMol/L (20.0-31.0); Chloride 101 mMol/L (98-107); Creatinine (Component) 1.0 mg/dL (0.6-1.3); Glucose 79 mg/dL (74-106); Osmolality,Calculated 274 (275-295); Phosphorous 2.2 mg/dL (2.4-5.1); Potassium 4.2 mMol/L (3.4-5.1); Sodium 139 mMol/L (136-145); eGFR > 60 See Note
== END | disposition home or self-care (01) ==
LOC: COPL 16:22
PROVIDERS: PCP Internal Medicine; Referring Provider Internal Medicine; Visit Provider Internal Medicine
DX: N17.9 Acute kidney failure, unspecified (principal)
CPT/HCPCS: 36415; 80069; 81001; 85025

== ENCOUNTER 2024-12-23 10:05 | Outpatient (AMB) | payer BC, SELFPAY ==
--- NOTE | 2024-12-23 10:12 | ORTHONT_ITS ---
Vital signs 12/23/24 10:19 Height 1.65 m Height Method Measured Weight 62.341 kg Weight Measurement Method Standing Scale BMI 22.8 BP 120/71 Blood Pressure Source Automatic Cuff Blood Pressure Location Left Upper Arm Position Sitting Respiration 16 Pulse 70 Pulse Source Monitor Temp 98.2 F Temp Source Temporal Artery Scan Pulse Oximetry (%) 98 Oxygen Delivery Method Room Air Med/Allergies Allergies & Medications Allergies No Known Allergies Allergy (Verified 12/23/24 10:23) Medication Reconciliation paroxetine HCl 20 mg tablet 20 mg PO HS 12/18/20 [History Confirmed 12/23/24] [id number] 36,000-114,000-180,000 unit capsule,delay rel (Creon) 1 cap PO QDAY 11/20/21 [History Confirmed 12/23/24] potassium chloride 20 mEq tablet,extended release(part/cryst) 1 tab PO QDAY 11/20/21 [History Confirmed 12/23/24] lactulose 20 gram/30 mL oral solution 5 g (7.5 mL) PO BID #300 mL 12/05/21 [Rx Confirmed 12/23/24] lansoprazole 30 mg delayed release,disintegrating tablet (Prevacid SoluTab) 30 mg PO QDAY #30 tabs 12/05/21 [Rx Confirmed 12/23/24] lorazepam 0.5 mg tablet 0.5 mg PO HS PRN Anxiety #30 tabs 12/05/21 [Rx Confirmed 12/23/24] prednisone 20 mg tablet 40 mg (2 x 20 mg) PO QDAY #30 tabs 12/05/21 [Rx Confirmed 12/23/24] spironolactone 25 mg tablet 25 mg PO DAILY #30 tabs 12/05/21 [Rx Confirmed 12/23/24] thiamine mononitrate (vit B1) 100 mg tablet (Vitamin B-1 (mononitrate)) 100 mg PO BID #30 tabs 12/05/21 [Rx Confirmed 12/23/24] ibuprofen 600 mg tablet 600 mg PO Q6H #30 tabs 02/10/23 [Rx Confirmed 12/23/24] ibuprofen 600 mg tablet 600 mg PO TID PRN pain #30 tabs 02/26/23 [Rx Confirmed 12/23/24] meloxicam 7.5 mg tablet 7.5 mg PO QDAY #45 tabs 11/04/23 [Rx Confirmed 12/23/24] celecoxib 200 mg capsule (Celebrex) 200 mg PO BID #60 caps 11/25/23 [Rx Confirmed 12/23/24] hydrocodone 5 mg-acetaminophen 325 mg tablet 1 tab PO BID PRN pain #10 tabs 03/12/24 [Rx Confirmed 12/23/24] hydrocodone 5 mg-acetaminophen 325 mg tablet 1 tab PO Q6H PRN pain #7 tabs 09/23/24 [Rx Confirmed 12/23/24] Exam Exam Patient is in no acute distress and is cooperative with the examination today. Breathing is nonlabored. In no respiratory distress. Bilateral extremities were evaluated and demonstrates sensation intact to light touch. Palpable pedal pulses are present. No significant edema is present. Bilateral hips were examined. The patient has no pain with log roll of the hips. Internal rotation to 30 degrees and external rotation to 30 degrees is painless. Negative FADIR. The left knee was examined. The left knee is in [varus] alignment. Range of motion from [0-115] degrees. Knee is stable to varus and valgus as well as AP translation with <5mm. Patient has a [negative] [place]. There is [no] pain wi th patellofemoral compression and [no] crepitus noted. The knee is [tender] to palpation [medially]. The right knee was also examined. The right knee is in [varus] alignment. Range of motion from [0-120] degrees. Knee is stable to varus and valgus as well as AP translation with <5mm. Patient has a [negative] [place]. There is [no] pain with patellofemoral compression and [no] crepitus noted. The knee is [tender] to palpation [medially]. Prior x-rays demonstrate moderate arthritis of the right knee with joint space narrowing medially and laterally Assessment and Plan Problem List (1) Degenerative arthritis of knee, bilateral: Status: Acute Plan: Patient is a 57-year-old female with bilateral knee arthritis worse on the left. We discussed injections on the right knee. We also recommended anti- inflammatories. Recommend knee cortisone injection as patient would like to proceed with conservative treatment at this time. The risks and benefits of the procedure were reviewed with the patient and patient gave verbal consent to continue with the procedure. Procedure: performed by Dr. Abernathy Using sterile technique the left knee was thoroughly prepped with alcohol, and approximately 1 cc of Depo-Medrol 80mg/mL and 4 cc of 0.2% ropivacaine was injected without resistance into the medial tibial femoral joint space. The patient tolerated the procedure. Recommend knee cortisone injection as patient would like to proceed with conservative treatment at this time. The risks and benefits of the procedure were reviewed with the patient and patient gave verbal consent to continue with the procedure. Procedure: performed by Dr. Abernathy Using sterile technique the Right knee was thoroughly prepped with alcohol, and approximately 1 cc of Depo-Medrol 80mg/mL and 4 cc of 0.2% ropivacaine was injected without resistance into the medial tibial femoral joint space. The patient tolerated the procedure. Office Procedures GNS Level of Care Nursing/Assessment Patient Status: Established Patient Nursing Assessment/Reassesment: Medication Reconciliation, Update PMH in EMR and Vital Signs Coordination of Care: Complex Care and Chronic Disease 1-5, Education Complex Pt/Fam, Results/Orders obtained and Staff clarify orders Established Patient Charge Established Patient Point Assignment: 90 Established Patient Point Charge: EP Level 3 (80-115) Surgical Proc/IM SQ injection Minor Surgical Procedure: Yes (KNEE INJECTION) Medication Given Medication Given Medication Given: Yes Documented Dose Given: 1 Route: Infiitration Medication Given Medication Given Medication Given: Yes Documented Dose Given: 1 Route: Infiitration Medication Given Medication Given Medication Given: Yes Documented Dose Given: 4 Route: Infiitration Medication Given Medication Given Medication Given: Yes Documented Dose Given: 4 Route: Infiitration Office Meds methylprednisolone acetate 80 mg/mL suspension for injection Performing Provider: Praneeth Abernathy MD Performing Location: [facility] Administered by: Praneeth Abernathy MD on 12/23/24 10:22 Dose Route Admin Location Dispensed Lot Number Expiration Date Pack age [facility] [employer] 80 mg intra-articular KNEE 1 mL [id number] 03/06/26 [address]-1 7 [id number] [employer] methylprednisolone acetate 80 mg/mL suspension for injection Performing Provider: Praneeth Abernathy MD Performing Location: [facility] Administered by: Praneeth Abernathy MD on 12/23/24 10:22 Dose Route Admin Location Dispensed Lot Number Expiration Date Pack age [facility] [employer] 80 mg intra-articular KNEE 1 mL [id number] 03/06/26 [address]-5 [id number] [employer] ropivacaine (PF) 2 mg/mL (0.2 %) injection solution Performing Provider: Praneeth Abernathy MD Performing Location: [facility] Administered by: Praneeth Abernathy MD on 12/23/24 10:22 2 Dose Route Admin Location Dispensed Lot Number Expiration Date Pack age [facility] [employer] 20 mL Infiltration KNEE 20 mL [id number] 05/07/27 71924-619-98 [id number] [facility] ropivacaine (PF) 2 mg/mL (0.2 %) injection solution Performing Provider: Praneeth Abernathy MD Performing Location: [facility] Administered by: Praneeth Abernathy MD on 12/23/24 10:22 Dose Route Admin Location Dispensed Lot Number Expiration Date Pack age [facility] [employer] 20 mL Infiltration KNEE 20 mL [id number] 05/07/27 54317-407-75 [id number] [facility] Intake Visit Data Collection New Patient or Established: Established Patient (seen at [facility] within 3 years) Reason for Visit:: BILATERAL KNEE INJECTION Seen by Clinical Staff ONLY (RN/MA): No Verbal consent obtained for Telemed visit?: No Cardiovascular Lab Director Required: No PCP or OBGYN visit in last 3 months: Yes Hx Now: No Do You Feel Safe at Home: Yes Authorities Contacted: N/A Questionairres Past Medical History Past Medical History Have you ever been diagnosed with any of the following: Neurological Problems Seizures: No Cardiology Problems Congestive Heart Failure: No Respiratory Problems Chronic Obstructive Pulmonary Disease (COPD): No Asthma: No Smoking: Yes (30 YEARS) Smoking Exposure: Yes Stomache/Intestinal Problems Cirrhosis: No Celiac Disease: No Gall Bladder Disease: Yes Daly's Esophagus: No Colitis: No Irritable Bowel: No Hiatal Hernia: Yes Gastroesophageal Reflux Disease: No Genital/Urinary Problems Renal Disease: No Endocrine Problems Diabetes Mellitus Type 1: No Diabetes Mellitus Type 2: No Hyperthyroidism: Yes Blood Problems Sickle Cell Disease: No Psychologic Problems Depression: Yes Anxiety: Yes Other Problems Falls: Yes Blood Transfusions: Yes Blood Transfusion Reaction: No Anesthesia Reactions: No Measles: Yes Mumps: Yes Cancer: No Subjective Visit Visit for: follow up visit Immunization / Flu Flu Vaccine in the Last 12 Months: No Flu Vaccine Exclusion Criteria: No Exclusion Criteria History of Present Illness Chief complaint: BILATERAL KNEE INJECTIONS Patient is a 58-year-old female with bilateral knee pain. She has done well wit h prior cortisone injections in the past. She would like bilateral knee injections today Personal History Red flag PMH: BMI and other (specify) (FORMER ALCHOLIC ) BMI Counceling provided: Yes Pain Pain level (0-10): 6 Pain duration: ALL DAY Pain location: inside (medial), outside (lateral), anterior and posterior Pain quality: sharp, dull and aching Pain timing: increases with activity Ambulatory data Ambulatory device: none Treatments Improvement with previous injections: Yes Improvement with PT: No Improvement with NSAIDS: no Review of Systems Review of Systems: All systems negative unless otherwise noted in HPI.
[2024-12-23 10:19] VITALS: BP 120/71; PULSE 70; RESP 16; TEMP 36.8; O2SAT 98; BMI 22.8
== END 2024-12-23 10:28 | disposition home or self-care (01) ==
LOC: HODSRG 10:05
PROVIDERS: PCP Internal Medicine; Referring Provider Internal Medicine; Supervising Provider Orthopaedic Surgery Adult Reconstructive Orthopaedic Surgery; Visit Provider Orthopaedic Surgery Adult Reconstructive Orthopaedic Surgery
DX: M17.0 Bilateral primary osteoarthritis of knee (principal); M25.562 Pain in left knee; M25.561 Pain in right knee
CPT/HCPCS: 20610; 99213; J1010; J2795; G0463

== ENCOUNTER 2025-03-25 09:36 | Outpatient (AMB) | payer BC, SELFPAY ==
[2025-03-25 09:57] VITALS: BP 114/68; PULSE 73; RESP 18; TEMP 36.6; O2SAT 97; BMI 21.4
--- NOTE | 2025-03-25 09:57 | ORTHONT_ITS ---
Vital signs 03/25/25 09:57 Height 1.65 m Height Method Measured Weight 58.315 kg Weight Measurement Method Standing Scale BMI 21.4 BP 114/68 Blood Pressure Source Automatic Cuff Blood Pressure Location Left Upper Arm Position Sitting Respiration 18 Pulse 73 Pulse Source Monitor Temp 97.9 F Temp Source Temporal Artery Scan Pulse Oximetry (%) 97 Oxygen Delivery Method Room Air Med/Allergies Allergies & Medications Allergies No Known Allergies Allergy (Verified 03/25/25 09:58) Medication Reconciliation paroxetine HCl 20 mg tablet 20 mg PO HS 12/18/20 [History Confirmed 03/25/25] tyxsbo-acobtosr-mebwdvt (pork)36,000-114,000-180k unit capsule,del rel (Creon) 1 cap PO QDAY 11/20/21 [History Confirmed 03/25/25] potassium chloride 20 mEq tablet,extended release(part/cryst) 1 tab PO QDAY 11/20/21 [History Confirmed 03/25/25] lactulose 20 gram/30 mL oral solution 5 g (7.5 mL) PO BID #300 mL 12/05/21 [Rx Confirmed 03/25/25] lansoprazole 30 mg delayed release,disintegrating tablet (Prevacid SoluTab) 30 mg PO QDAY #30 tabs 12/05/21 [Rx Confirmed 03/25/25] lorazepam 0.5 mg tablet 0.5 mg PO HS PRN Anxiety #30 tabs 12/05/21 [Rx Confirmed 03/25/25] prednisone 20 mg tablet 40 mg (2 x 20 mg) PO QDAY #30 tabs 12/05/21 [Rx Confirmed 03/25/25] spironolactone 25 mg tablet 25 mg PO DAILY #30 tabs 12/05/21 [Rx Confirmed 03/25/25] thiamine mononitrate (vit B1) 100 mg tablet (Vitamin B-1 (mononitrate)) 100 mg PO BID #30 tabs 12/05/21 [Rx Confirmed 03/25/25] ibuprofen 600 mg tablet 600 mg PO Q6H #30 tabs 02/10/23 [Rx Confirmed 03/25/25] ibuprofen 600 mg tablet 600 mg PO TID PRN pain #30 tabs 02/26/23 [Rx Confirmed 03/25/25] meloxicam 7.5 mg tablet 7.5 mg PO QDAY #45 tabs 11/04/23 [Rx Confirmed 03/25/25] celecoxib 200 mg capsule (Celebrex) 200 mg PO BID #60 caps 11/25/23 [Rx Confirmed 03/25/25] hydrocodone 5 mg-acetaminophen 325 mg tablet 1 tab PO BID PRN pain #10 tabs 03/12/24 [Rx Confirmed 03/25/25] hydrocodone 5 mg-acetaminophen 325 mg tablet 1 tab PO Q6H PRN pain #7 tabs 09/23/24 [Rx Confirmed 03/25/25] Exam Exam Patient is in no acute distress and is cooperative with the examination today. Breathing is nonlabored. In no respiratory distress. Bilateral extremities were evaluated and demonstrates sensation intact to light touch. Palpable pedal pulses are present. No significant edema is present. Bilateral hips were examined. The patient has no pain with log roll of the hips. Internal rotation to 30 degrees and external rotation to 30 degrees is painless. Negative FADIR. The left knee was examined. The left knee is in [varus] alignment. Range of motion from [0-115] degrees. Knee is stable to varus and valgus as well as AP translation with <5mm. Patient has a [negative] Mc[place]. There is [no] pain w ith patellofemoral compression and [no] crepitus noted. The knee is [tender] to palpation [medially]. The right knee was also examined. The right knee is in [varus] alignment. Range of motion from [0-120] degrees. Knee is stable to varus and valgus as well as AP translation with <5mm. Patient has a [negative] Mc[place]rays. There is [no] pain with patellofemoral compression and [no] crepitus noted. The knee is [tender] to palpation [medially]. Prior x-rays demonstrate moderate arthritis of the right knee with joint space narrowing medially and laterally Assessment and Plan Problem List (1) Degenerative arthritis of knee, bilateral: Status: Acute Plan: Patient is a 59-year-old female with a left knee pain and left knee arthritis. We Will get x-rays of the left hip. Recommend knee cortisone injection as patient would like to proceed with conservative treatment at this time. The risks and benefits of the procedure were reviewed with the patient and patient gave verbal consent to continue with the procedure. Procedure: performed by Dr. Abernathy Using sterile technique the left knee was thoroughly prepped with alcohol, and approximately 1 cc of Depo-Medrol 80mg/mL and 4 cc of 0.2% ropivacaine was injected without resistance into the medial tibial femoral joint space. The patient tolerated the procedure well Office Procedures GNS Level of Care Nursing/Assessment Patient Status: Established Patient Nursing Assessment/Reassesment: Medication Reconciliation, Update PMH in EMR and Vital Signs Coordination of Care: Complex Care and Chronic Disease 1-5, Education Complex Pt/Fam, Consent,records obtained, informed consent, Lab and Imaging orders, R esults/Orders obtained and Staff clarify orders Established Patient Charge Established Patient Point Assignment: 110 Established Patient Point Charge: EP Level 3 (80-115) Surgical Proc/IM SQ injection Minor Surgical Procedure: Yes Medication Given Medication Given Medication Given: Yes Documented Dose Given: 1 Route: Infiitration Medication Given Medication Given Medication Given: Yes Documented Dose Given: 4 Route: Infiitration Office Meds methylprednisolone acetate 80 mg/mL suspension for injection Performing Provider: Praneeth Abernathy MD Performing Location: [facility] Administered by: Praneeth Abernathy MD on 03/25/25 11:20 Dose Route Admin Location Dispensed Lot Number Expiration Date Pack age [facility] [employer] 80 mg intra-articular 1 mL [id number] 12/04/26 [address]-6 [id number] [employer] ropivacaine (PF) 2 mg/mL (0.2 %) injection solution Performing Provider: Praneeth Abernathy MD Performing Location: [facility] Administered by: Praneeth Abernathy MD on 03/25/25 11:20 Dose Route Admin Location Dispensed Lot Number Expiration Date Pack age [facility] [employer] 20 mL Infiltration 20 mL [id number] 09/03/26 5452-5070-90 [id number] [facility] Intake Visit Data Collection New Patient or Established: Established Patient (seen at [facility] within 3 years) Reason for Visit:: BILATERAL KNEE INJECTION Seen by Clinical Staff ONLY (RN/MA): No Verbal consent obtained for Telemed visit?: No Organizational Development Director Required: No PCP or OBGYN visit in last 3 months: Yes Hx Now: No Do You Feel Safe at Home: Yes Authorities Contacted: N/A Questionairres Past Medical History Past Medical History Have you ever been diagnosed with any of the following: Neurological Problems Seizures: No Cardiology Problems Congestive Heart Failure: No Respiratory Problems Chronic Obstructive Pulmonary Disease (COPD): No Asthma: No Smoking: Yes (30 YEARS) Smoking Exposure: Yes Stomache/Intestinal Problems Cirrhosis: No Celiac Disease: No Gall Bladder Disease: Yes Daly's Esophagus: No Colitis: No Irritable Bowel: No Hiatal Hernia: Yes Gastroesophageal Reflux Disease: No Genital/Urinary Problems Renal Disease: No Endocrine Problems Diabetes Mellitus Type 1: No Diabetes Mellitus Type 2: No Hyperthyroidism: Yes Blood Problems Sickle Cell Disease: No Psychologic Problems Depression: Yes Anxiety: Yes Other Problems Falls: Yes Blood Transfusions: Yes Blood Transfusion Reaction: No Anesthesia Reactions: No Measles: Yes Mumps: Yes Cancer: No Subjective Visit Visit for: follow up visit Immunization / Flu Flu Vaccine in the Last 12 Months: No Flu Vaccine Exclusion Criteria: No Exclusion Criteria History of Present Illness Chief complaint: BILATERAL KNEE INJECTIONS Patient is a 58-year-old female with bilateral knee pain. She has done well with prior cortisone injections in the past. she reports that she has some left knee pain. She would like a left knee cortisone injection today. Personal History Red flag PMH: BMI and other (specify) (FORMER ALCHOLIC ) BMI Counceling provided: Yes Pain Pain level (0-10): 6 Pain duration: ALL DAY Pain location: inside (medial), outside (lateral), anterior and posterior Pain quality: sharp, dull and aching Pain timing: increases with activity Ambulatory data Ambulatory device: none Treatments Number of previous injections: 2 Improvement with previous injections: Yes Improvement with PT: No Improvement with NSAIDS: no Review of Systems Review of Systems: All systems negative unless otherwise noted in HPI.
== END 2025-03-25 10:06 | disposition home or self-care (01) ==
LOC: HODSRG 09:36
PROVIDERS: PCP Internal Medicine; Referring Provider Internal Medicine; Supervising Provider Orthopaedic Surgery Adult Reconstructive Orthopaedic Surgery; Visit Provider Orthopaedic Surgery Adult Reconstructive Orthopaedic Surgery
DX: M25.562 Pain in left knee (principal); M25.561 Pain in right knee; M17.12 Unilateral primary osteoarthritis, left knee
CPT/HCPCS: 20610; 99213; J1010; J2795; G0463